=== PATIENT | male | born 1960 | race African-American/Black ===

== ENCOUNTER 2024-04-06 17:52 | Emergency (ER) | payer BC ==
[~2024-04-06] VITALS: Ht 177.8 cm; Wt 73.0 kg
[2024-04-06 18:01] VITALS: BP_SYST 106; PULSE 75; RESP 16; TEMP 97.9; O2SAT 99
[2024-04-06] MEDS: METOCLOPRAMIDE HCL 10 MG/2 ML VIAL IVP ONE (18:41)
[2024-04-06] MEDS: DIPHENHYDRAMINE INJ 50 MG/ML VIAL IVP ONE (18:42)
[2024-04-06 19:56] LABS: BASOPHILS % (AUTO) 0.4 % (0.0-2.0); EOSINOPHILS # (AUTO) 0.3 K/uL (0.0-0.4); EOSINOPHILS % (AUTO) 6.1 % (0.0-4.0); HEMATOCRIT 33.7 % (36-54); LYMPHOCYTES # (AUTO) 2.4 K/uL (1.0-5.5); LYMPHOCYTES % (AUTO) 42.8 % (20.5-51.5); MEAN CORPUSCULAR HEMOGLOBIN 31 pg (27-31); MEAN CORPUSCULAR HGB CONC 36 % (32-36); MEAN CORPUSCULAR VOLUME 88 fL (79.0-98.0); MONOCYTES # (AUTO) 0.5 K/uL (0.0-1.0); MONOCYTES % (AUTO) 8.2 % (1.7-9.3); NEUTROPHILS # (AUTO) 2.4 K/uL (1.8-7.7); NEUTROPHILS % (AUTO) 42.5 % (40.0-70.0); PLATELET COUNT (AUTO) 177 K/uL (130-430); RED BLOOD CELL COUNT(AUTO) 3.82 MIL/uL (4.2-6.2); RED CELL DISTRIBUTION WIDTH 14.4 % (9.0-15.0); WHITE BLOOD COUNT (AUTO) 5.7 K/uL (4.8-10.8)
[2024-04-06 20:02] LABS: ERYTHROCYTE SEDIMENTATION RATE 1 MM/HR (0-15)
[2024-04-06 20:16] LABS: PROTHROMBIN TIME 10.8 SECS (9.5-12.5)
[2024-04-06] MEDS ORDERED: HYDR-3917 PO (20:22)
[2024-04-06] MEDS ORDERED: IBUP-1971 PO (20:22)
[2024-04-06 20:26] LABS: CALCIUM 8.4 mg/dL (8.4-11.0); CREATININE 1.04 mg/dL (0.55-1.30); POTASSIUM 3.7 mmol/L (3.5-5.1)
[2024-04-06] MEDS ORDERED: levETIRAcetam 500 MG in NS 100 ML IV ONE (20:30)
[2024-04-06 20:50] VITALS: BP_SYST 106; PULSE 75; RESP 16; TEMP 97.9; O2SAT 99
== END 2024-04-06 20:50 | disposition home or self-care (01) ==
LOC: SED 17:52
DX: R51.9 Headache, unspecified (principal); D49.7 Neoplasm of unspecified behavior of endocrine glands and other parts of nervous system; R11.0 Nausea
CPT/HCPCS: 99285; 96374; 70450; 96375; 80048; 85025; 85610; 85651; 85730; 36415; 82397; J1200; J2765